=== PATIENT | female | born 1985 | race Caucasian/White ===

== ENCOUNTER 2018-01-17 11:22 | Emergency (ER) | payer BC ==
[~2018-01-17] VITALS: Ht 170.2 cm; Wt 85.1 kg
[~2018-01-17 11:22] MED LIST: ALBUTEROL SULF8.5 GM IH; NOHOMEMEDS; TAMIFLU75 MG PO; TESSALON PERLE100 MG PO; VALIUM5 MG PO; ZITHROMAX500 MG PO; [UNRECOGNIZED DRUG - REMARK] TP
[2018-01-17 11:59] LABS: HEMATOCRIT 38.8 % (36.0-46.0); HEMOGLOBIN 13.4 G/DL (11.9-15.5); MCH 29.5 PG (29.0-34.0); MCHC 34.5 G/DL (30.0-36.0); MCV 85.5 FL (83-99); PLATELET COUNT 306 K/uL (156-360); RBC DIS.WIDTH-CV 12.4 % (11.8-14.6); RBC DIS.WIDTH-SD 38.5 % (39-53); RED BLOOD COUNT 4.54 M/uL (3.80-5.20); WHITE BLOOD COUNT 5.7 K/uL (4.1-10.2)
[2018-01-17 12:07] LABS: CHLORIDE 107 mEq/L (99-109); POTASSIUM 4.2 mEq/L (3.7-5.4); SODIUM 142 mEq/L (136-147)
[2018-01-17 12:09] LABS: GLUCOSE 99 mg/dL (70-99)
[2018-01-17 12:12] LABS: CREATININE 0.7 mg/dL (0.6-1.3); GFR ESTIMATE (CALCULATED) > 59 mL/min/
[2018-01-17 12:13] LABS: UREA NITROGEN (BUN) 9 mg/dL (9-23)
[2018-01-17 12:19] LABS: TROP-I INTERPRETATION NEGATIVE; TROPONIN-I < 0.01 ng/mL (0.0-0.30)
[2018-01-17 13:38] LABS: APPEARANCE CLEAR ((CLEAR)); BILIRUBIN NEGATIVE; BLOOD NEGATIVE; COLOR STRAW ((YELLOW)); GLUCOSE (STRIP) NEGATIVE; KETONES NEGATIVE; LEUKOCYTES NEGATIVE; NITRITE NEGATIVE; PROTEIN (STRIP) NEGATIVE; UCUL ADDED? NO; UROBILINOGEN 0.2 MG/DL (0.2-1.0)
[2018-01-17 15:30] LABS: TROP-I INTERPRETATION NEGATIVE; TROPONIN-I < 0.01 ng/mL (0.0-0.30)
[2018-01-17] MEDS ORDERED: ZOFRAN ODT4 MG PO (16:00)
[2018-01-17] MEDS ORDERED: MOTRIN800 MG PO (16:00)
[2018-01-17 16:24] VITALS: BP 127/74
== END 2018-01-17 16:26 | disposition home or self-care (01) ==
LOC: EME 11:22
PROVIDERS: Nurse Practitioner Family
DX: R07.9 Chest pain, unspecified (principal); K08.89 Other specified disorders of teeth and supporting structures; R11.2 Nausea with vomiting, unspecified; Z98.890 Other specified postprocedural states; Z88.5 Allergy status to narcotic agent
CPT/HCPCS: 71046; 80048; 81003; 84484; 85027; 93005; 99281; 99284